=== PATIENT | male | born 1945 | race Caucasian/White ===

== ENCOUNTER 2017-06-26 23:31 | Inpatient (IN) | payer OTHER, MEDICARE ==
[~2017-06-26] VITALS: Ht 193 cm; Wt 110.7 kg
--- NOTE | ~2017-06-26 | HC ---
[facility] [place] [address] CONSULTATION Name: ANNIA ZAMBRANO Room #: 238-P [facility] [place] M.R.#: [id number] Admission: 06/27/17 Attend Phys: Jay Jay Monroe MD Discharge: Date of : 47 Report #: [id number] THIS REPORT FOR: //name// CC: Dr. Mable Monroe NO PCP DATE OF SERVICE: 06/27/2017 REFERRING PROVIDER: Dr. Morales and Dr. Akins. REASON FOR CONSULTATION: Pulmonary embolism. CHIEF COMPLAINT: Shortness of breath, left lower extremity edema. HISTORY OF PRESENT ILLNESS: Our group was asked to see the patient in consultation while hospitalized at [facility], history taken through his significant other's daughter who is a family medicine doctor as well as from patient who seems to be a reliable historian as well as discussion with healthcare providers. 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 He frequently travels between [place] and [place] to be with family, although he lives in [place]. He noted some increasing edema yesterday. His significant other texted a picture of his left lower extremity to her daughter who is a physician and noted this is likely a DVT. The patient presented to the Emergency Department, was found to have significant pulmonary emboli in multiple areas as well as a left lower extremity DVT, started on initially enoxaparin by this morning, then on heparin drip at this time. Had marked improvement in his lower extremity edema. Denies any chest pain, palpitations, no near syncopal events. The patient remains stable in ICU. The patient has been undergoing workup for possible autoimmune disease, initially felt to be possibly polymyalgia rheumatica and also noted to have elevated IMTIAZ. Current workup is still pending. ALLERGIES: None known. PAST MEDICAL HISTORY: 1. Nocturnal hypoxemia of unclear etiology. 2. 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 3. Restrictive lung disease, likely secondary to above. [facility] [address] [place] [address] CONSULTATION Name: ANNIA ZAMBRANO Room #: 238-P [facility] [place] [facility].#: [id number] Admission: 06/27/17 Attend Phys: Jay Jay Monroe MD Discharge: Date of : 47 Report #: [id number] 4. History of hypertension. 5. History of hyperlipidemia. 6. 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 OUTPATIENT MEDICATIONS: Include bupropion, gabapentin, hydrochlorothiazide, oxycodone, Avodart, and Synthroid. SOCIAL HISTORY: The patient is a nonsmoker. No significant alcohol consumption. As mentioned lives in [place] but travels back and forth between [place] and [place], typically flying or driving. Employed as ____. Exercises regular. FAMILY HISTORY: Negative for any venous thromboembolism in the past. REVIEW OF SYSTEMS: CONSTITUTIONAL: Denies any fever, chills or sweats. ENT: No upper respiratory congestion, rhinorrhea or dysphagia. CARDIOVASCULAR: No chest pains or palpitations. No known cardiac disease. GASTROINTESTINAL: No nausea, vomiting or abdominal pain. Has had some abdominal bloating noted. No hematochezia. No change in stools. GENITOURINARY: No dysuria. Does have urinary frequency. Has some nocturia. INTEGUMENT: Denies any rash. MUSCULOSKELETAL: As described in HPI. PHYSICAL EXAMINATION: VITAL SIGNS: Afebrile, pulse 70, respiratory rate 16, blood pressure 133/82, oxygen saturation 96% on 2 liters. GENERAL: This is a pleasant elderly male, in no distress. HEENT: Clear oropharynx, Mallampati 2 airway, no thrush. NECK: Supple, no lymphadenopathy. LUNGS: Diminished in the bases. Basilar inspiratory crackles. No wheezes. CARDIOVASCULAR: Regular. No murmurs appreciated. ABDOMEN: Soft, nontender, no masses, no hepatosplenomegaly appreciated. EXTREMITIES: Left greater than right, 1+ edema, some mild erythema in the lower extremity. INTEGUMENT: No rash. There were bilateral knee linear scars vertically noted. LABORATORY DATA: White blood cell count 8000, hemoglobin 14, hematocrit 41, platelet count 187. Sodium 141, potassium 3.6, chloride 107, bicarbonate 27, BUN 21, creatinine 0.9, glucose 140, troponin was negative. BNP was 60. CT scan as described in HPI. IMPRESSION: 1. Venous thromboembolism with left lower extremity deep venous thrombosis and extensive pulmonary embolism noted. Nothing on CT for significant right ventricular strain. The patient is hemodynamically stable. Beta-natriuretic [facility] [address] [place] [address] CONSULTATION Name: ANNIA ZAMBRANO Room #: 238-P [facility] [place] M.R.#: [id number] Admission: 06/27/17 Attend Phys: Jay Jay Monroe MD Discharge: Date of : 47 Report #: [id number] peptide also not elevated, which suggests no significant right ventricular strain. Echocardiogram is pending at this point. Following treatment recommended is to continue anticoagulant therapy and to continue observing for any deterioration. No indication for ____ therapy or IVC filter. 2. Possible autoimmune disease. 3. History of hypertension. 4. Hyperlipidemia. SUGGESTIONS: 1. Continue anticoagulation at some point. Change to enoxaparin, an oral anticoagulant therapy if stable for the next 24 hours. 2. Continue ICU observation for possible deterioration, may warrant more aggressive therapy. 3. Hematology consultation to evaluate for autoimmune related hypercoagulable conditions as well as other hypercoagulable states. Anticipate that the patient will need at least a minimum of 3 months anticoagulant therapy. Discussed with daughter Mable who is a family practice doctor by phone. All questions answered. We will follow along with you. Thank you for requesting our suggestions. By: [id number] Clayton Figueroa MD /nt
--- NOTE | ~2017-06-26 | 2DMMODE ---
[facility] [email or web address] [address] 2 D/M-MODE ECHOCARDIOGRAM Name: ANNIA ZAMBRANO Room #: 238-P [facility] IN ..#: [id number] Admission: 06/27/17 Attend Phys: Diana Hodges Discharge: Date of : 47 Date of Service: 06/27/17 1508 Report #: [id number] THIS REPORT FOR: //name// APPROVED REPORT Study performed: 06/27/2017 08:10:43 EXAM: Comprehensive 2D, Doppler, and color-flow Echocardiogram Patient Location: Bedside Room #: 238 Status: routine BSA: 2.41 BP: 133/82 mmHg Other Information Study Quality: Technically DifficultTechnically Limited Technically limited study due to body habitus. Indications Dyspnea Hypertension/HDD Echo Enhancing Agent Indication: Endocardial border delineation Agent(s) / Amount(s) Used: Optison 3 cc 2D Dimensions RVDd: 39.79 mm LVEF(%): 68.23 (>50%) IVSd: 13.55 (7-11mm) LVOT Diam: 20.73 (18-24mm) LVDd: 43.38 mm PWd: 12.84 (7-11mm) Ascending Ao: 34.71 (22-36mm) LVDs: 26.97 (25-40mm) Aortic Root: 41.87 mm IVC: 22.00 mm Rogers's LVEF: 68.23 % Volumes Left Atrial Volume (Systole) Single Plane 4CH: 68.33 mL Single Plane 2CH: 28.35 mL LA ESV Index: 19.00 mL/m2 Aortic Valve AoV Peak Adan.: 1.21 m/s AO Peak Gr.: 5.88 mmHg LVOT Max P.80 mmHg LVOT Max V: 0.97 m/s [facility] [place] [address] 2 D/M-MODE ECHOCARDIOGRAM Name: ANNIA ZAMBRANO Room #: 238-P [facility] IN .R.#: [id number] Admission: 06/27/17 Attend Phys: Diana Hodges Discharge: Date of : 47 Date of Service: 06/27/17 1508 Report #: [id number] YOGESH Vmax: 2.71 cm2 Mitral Valve E/A Ratio: 1.3 MV Decel. Time: 303.16 ms MV E Max Adan.: 0.67 m/s MV A Adan.: 0.51 m/s MV PHT: 87.92 ms IVRT: 134.95 ms Pulmonary Valve PV Peak Adan.: 1.00 m/s PV Peak Gr.: 4.00 mmHg Pulmonary Vein P Vein S: 0.41 m/s P Vein A: 0.20 m/s P Vein D: 0.28 m/s P Vein A Dur.: 138.4 msec P Vein S/D Ratio: 1.46 Tricuspid Valve RAP Estimate: 15.00 mmHg Left Ventricle The left ventricle is normal size. Mild to moderate concentric left ventricular hypertrophy. The overall left ventricular systolic function appears normal. LVEF is 55%. Moderate diastolic dysfunction is present (pseudonormal filling). Right Ventricle Right ventricle is borderline dilated. The right ventricular systolic function is normal. Atria The left atrium size is normal. The right atrium size is normal. Aortic Valve The aortic valve is normal in structure. No aortic regurgitation is present. There is no aortic valvular stenosis. Mitral Valve The mitral valve is normal in structure. There is no mitral valve regurgitation noted. No evidence of mitral valve stenosis. Tricuspid Valve The tricuspid valve is normal in structure. There is no tricuspid valve regurgitation noted. RAP is estimated at 15 mmHg. Unable to [facility] [address] [address] 2 D/M-MODE ECHOCARDIOGRAM Name: ANNIA ZAMBRANO Room #: 238-P [facility] IN ..#: [id number] Admission: 06/27/17 Attend Phys: Diana Hodges Discharge: Date of : 47 Date of Service: 06/27/17 1508 Report #: [id number] assess PA pressure. Pulmonic Valve Pulmonic valve is not well visualized. Trace pulmonic regurgitation. Great Vessels Aortic root is mildly dilated at 4.2 cm. IVC is dilated and collapses <50% with inspiration. <Conclusion> The left ventricle is normal size. LVEF is 55%. Right ventricle is borderline dilated. The left atrium size is normal. The aortic valve is normal in structure. No aortic regurgitation is present. There is no aortic valvular stenosis. The mitral valve is normal in structure. There is no mitral valve regurgitation noted. No evidence of mitral valve stenosis. The tricuspid valve is normal in structure. There is no tricuspid valve regurgitation noted. RAP is estimated at 15 mmHg. Unable to assess PA pressure. Pulmonic valve is not well visualized. Trace pulmonic regurgitation. Aortic root is mildly dilated at 4.2 cm. <ELECTRONICALLY SIGNED> By: Jorge Farrar MD 06/27/17 1508 1508 1508 Jorge Farrar MD /INF
--- NOTE | ~2017-06-26 | EKG ---
[address] [place] [address] ELECTROCARDIOGRAM REPORT Name: ANNIA ZAMBRANO Room #: 456-P [facility] IN M.R.#: [id number] Admission: 06/27/17 Attend Phys: Jay Jay Monroe MD Discharge: Date of : 47 Report #: [id number] THIS REPORT FOR: //name// [facility] ED Test Date: 2017-06-27 Test Time: 00:50:00 Pat Name: ANNIA ZAMBRANO Department: Room: 456 Gender: M [employer]: TIM : 1945 Requested By: Gumaro Hoang Order Number: [id number] MD: Balwinder Chapa Measurements Intervals [place] Rate: 78 P: 52 VA: 139 QRS: 40 QRSD: 113 T: -5 QT: 407 QTc: 464 Interpretive Statements Sinus rhythm Borderline intraventricular conduction delay Baseline wander in lead(s) V4,V6 No previous ECG available for comparison Electronically Signed On 06-29-2017 13:30:12 CDT by Balwinder Chapa [email or web address] <ELECTRONICALLY SIGNED> By: Balwinder Chapa MD, [facility] 06/29/17 1330 0050 Balwinder Chapa MD, [facility] /EPI
[2017-06-26 23:35] VITALS: BP 148/90
[2017-06-27] VITALS (25 sets, daily range): BP systolic 116–178; BP diastolic 55–94
[2017-06-27 01:05] LABS: BASOPHILS 0.7 % (0.0-2.0); EOSINOPHILS 2.3 % (0.0-3.0); HEMATOCRIT 40.9 % (42.0-52.0); HEMOGLOBIN 14.2 gm/dL (14.0-18.0); LYMPHOCYTES 14.3 % (24.0-44.0); MCH 33.5 pg (26.0-34.0); MCHC 34.8 g/dL (28.0-37.0); MCV 96.4 fL (80.0-100.0); MONOCYTES 9.3 % (1.0-8.0); PLATELET COUNT 187 thou/uL (150-400); POLYS 73.4 % (36.0-66.0); RBC 4.24 mil/uL (4.50-6.00); RDW 13.4 % (10.5-14.5); WBC 8.1 thou/uL (4.0-11.0)
[2017-06-27 01:15] LABS: MANUAL DIFF NO
[2017-06-27] MEDS ORDERED: BUPROPION XL300 MG PO (01:17)
[2017-06-27] MEDS ORDERED: HYDROCHLOROTH12.5 M1 PO (01:17)
[2017-06-27] MEDS ORDERED: NEURONTIN100 MG PO (01:17)
[2017-06-27] MEDS ORDERED: ENDOCET 10-3251 EACH PO (01:18)
[2017-06-27] MEDS ORDERED: LEVOTHYROXIN0.088 MG PO (01:19)
[2017-06-27] MEDS ORDERED: AVODART0.5 MG PO (01:19)
[2017-06-27 01:31] LABS: APTT 26.4 Seconds (24.5-32.8); PROTIME 9.9 Seconds (9.3-11.4)
[2017-06-27 01:42] LABS: ANION GAP 7 mmol/L (7-16); CHLORIDE 107 mmol/L (98-107); CO2 27 mmol/L (21-32); POTASSIUM 3.6 mmol/L (3.5-5.1); SODIUM 141 mmol/L (136-145)
[2017-06-27 01:49] LABS: TROPONIN-I < 0.04 ng/mL (<0.04-0.07)
[2017-06-27 02:05] LABS: ALBUMIN 3.3 g/dL (3.4-5.0); ALKALINE PHOSPHATASE 71 U/L (46-116); BUN 21 mg/dL (7-18); CALCIUM 8.9 mg/dL (8.5-10.1); CREATININE 0.9 mg/dL (0.7-1.3); GLUCOSE 140 mg/dL (74-106); SGOT 30 U/L (15-37); SGPT 37 U/L (30-65); TOTAL BILIRUBIN 0.2 mg/dL (<0.1-1.0); TOTAL PROTEIN 7.3 g/dL (6.4-8.2)
[2017-06-27 04:40] LABS: ABG SAMPLE TYPE ARTERIAL; BE(vivo) 1.1 mmol/L (-2 to +3); HCO3 26.7 mmol/L (22.0-26.0); LACTATE 0.95 mmol/L (0.5-2.0); O2(CT) 18.8 mL/dL (15.0-23.0); O2Hb 92.3 % (92.0-98.0); PO2 70.1 mmHg (80.0-100.0); STICK SITE R.RADIAL; pH 7.381 (7.360-7.450); sO2 93.7 % (92.0-98.0); tCO2 28.1 mmol/L (24.0-30.0)
[2017-06-27 11:55] LABS: URINE BILIRUBIN NEGATIVE (Negative); URINE BLOOD NEGATIVE (Negative); URINE COLOR YELLOW; URINE GLUCOSE-RANDOM* NEGATIVE (Negative); URINE KETONES NEGATIVE (Negative); URINE NITRITE NEGATIVE (Negative); URINE PROTEIN (DIPSTICK) NEGATIVE (Negative); URINE UROBILINOGEN 0.2 E.U./dl (0.2-1.0)
[2017-06-27 12:03] LABS: AMP/METHAMP Negative (Negative); BARBITURATES Negative (Negative); BENZODIAZEPINES Negative (Negative); COCAINE Negative (Negative); METHADONE Negative (Negative); OPIATES POSITIVE (Negative); PCP Negative (Negative); THC Negative (Negative)
[2017-06-28] VITALS (14 sets, daily range): BP systolic 134–159; BP diastolic 74–88
[2017-06-28 04:30] LABS: HEMATOCRIT 38.8 % (42.0-52.0); HEMOGLOBIN 13.1 gm/dL (14.0-18.0); MCH 33.1 pg (26.0-34.0); MCHC 33.8 g/dL (28.0-37.0); RBC 3.96 mil/uL (4.50-6.00); RDW 13.5 % (10.5-14.5); WBC 7.1 thou/uL (4.0-11.0)
[2017-06-28 04:38] LABS: CALCIUM 8.7 mg/dL (8.5-10.1); CREATININE 0.9 mg/dL (0.7-1.3); POTASSIUM 3.8 mmol/L (3.5-5.1)
[2017-06-29 03:52] VITALS: BP 151/78
[2017-06-29 08:00] VITALS: BP 143/76
[2017-06-29 12:29] VITALS: BP 135/88
[2017-06-29 15:27] VITALS: BP 152/83
[2017-06-29 19:20] VITALS: BP 147/89
[2017-06-30 02:59] VITALS: BP 129/84
[2017-06-30 05:04] LABS: CALCIUM 9.7 mg/dL (8.5-10.1); CREATININE 0.9 mg/dL (0.7-1.3)
[2017-06-30 07:50] VITALS: BP 148/83
[2017-06-30 11:22] VITALS: BP 144/96
[2017-06-30 12:17] LABS: ABG SAMPLE TYPE ARTERIAL; BE(vivo) 0.1 mmol/L (-2 to +3); HCO3 24.8 mmol/L (22.0-26.0); O2(CT) 20.3 mL/dL (15.0-23.0); O2Hb 91.9 % (92.0-98.0); PCO2 40.4 mmHg (35.0-45.0); PO2 65.6 mmHg (80.0-100.0); STICK SITE R.RADIAL; pH 7.406 (7.360-7.450); sO2 93.1 % (92.0-98.0)
[2017-06-30 15:35] VITALS: BP 139/80
[2017-06-30] MEDS ORDERED: PRADAXA150 MG PO (16:55)
[2017-06-30 17:09] VITALS: BP 139/80
[2017-06-30] MEDS ORDERED: FLOMAX0.4 MG PO ×2 (17:22→17:23)
[2017-07-01 03:12] LABS: ANTITHROMBIN III 111 % (75-135); DIL. RUSSELL VIPER VENOM 54.4 sec (0.0-47.0); FACTOR VIII-AHF 93 % (57-163)
[2017-07-01 17:13] LABS: BETA-2 GLYCOPROTEIN IGG < 9 (0-20); BETA-2 GLYCOPROTEIN IGM < 9 (0-32)
[2017-07-07 19:12] LABS: PROTHROMBIN GENE MUTATION Negative (())
== END 2017-06-30 20:30 | disposition home or self-care (01) | DRG 175 ==
LOC: ER 23:31 → ICU 06-27 02:11 → 4W 06-27 02:11 → EROBS 06-27 02:11 → ICU 06-27 04:02 → 4W 06-28 13:19
PROVIDERS: Emergency Medicine; Internal Medicine Hematology & Oncology; Internal Medicine Pulmonary Disease; Nurse Practitioner Family
DX: I26.92 Saddle embolus of pulmonary artery without acute cor pulmonale (principal); J96.20 Acute and chronic respiratory failure, unspecified whether with hypoxia or hypercapnia; I82.412 Acute embolism and thrombosis of left femoral vein; I82.432 Acute embolism and thrombosis of left popliteal vein; M54.9 Dorsalgia, unspecified; G89.29 Other chronic pain; I10 Essential (primary) hypertension; E78.00 Pure hypercholesterolemia, unspecified; J98.4 Other disorders of lung; E78.5 Hyperlipidemia, unspecified; E03.9 Hypothyroidism, unspecified; N40.0 Benign prostatic hyperplasia without lower urinary tract symptoms
CPT/HCPCS: 10045; 10078

== ENCOUNTER → 2017-07-09 | Outpatient (CLI) | payer OTHER, MEDICARE ==
[~2017-07-09] MED LIST: AVODART0.5 MG PO; BUPROPION XL300 MG PO; ENDOCET 10-3251 EACH PO; FLOMAX0.4 MG PO; HYDROCHLOROTH12.5 M1 PO; LEVOTHYROXIN0.088 MG PO; NEURONTIN100 MG PO; PRADAXA150 MG PO
== END ==
LOC: RAD 16:04
DX: I27.82 Chronic pulmonary embolism (principal); J98.11 Atelectasis

== ENCOUNTER → 2018-04-01 | Outpatient (CLI) | payer OTHER, MEDICARE | LOC: RAD 11:49 | DX: J93.9 Pneumothorax, unspecified (principal); I10 Essential (primary) hypertension ==